=== PATIENT | male | born 1965 | race Caucasian/White ===

== ENCOUNTER 2017-12-05 13:00 | Outpatient (RCR) | payer BC ==
[2017-12-02 14:37] VITALS: BP 120/79
[2017-12-02 15:08] LABS: PLATELET COUNT, AUTOMATED 166 K/uL (150-450)
[~2017-12-05 13:00] MED LIST: ACET500T68 PO; ATOR10TA24 PO; CHOL10005 PO; EMPA1TAB3; FURO-45 PO; GLUC100026 PO; HYDR-317 PO; IBUP-1671 PO; IBUP600T22 PO; LOR5/325 PO; LOSA-54 PO; METF-411 PO; MONT10TA PO; OLME1TAB60 PO; ONDA4TAB PO; POTA99TA6 PO; PROM-110 PO; TADA5TAB7 PO
[2017-12-05 13:04] VITALS: BP 115/74
--- NOTE | 2017-12-05 13:36 | ONC Progress Note - NP.Halsey ---
Patient History Date of Service Dec 05, 2017 Reason For Visit/HPI Patient is seen in the clinic today for follow-up of his erythrocytosis. Patient denies any fatigue or changes since his last office visit. 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 He is having a colonoscopy with his primary care provider next week. With his last visit he did report occasional rectal bleeding from hemorrhoids. CBC is drawn today shows a stable hematocrit of 52.8, previously was 52.6, hemoglobin 18.3. Patient has no concerns today Problem List (1) Erythrocytosis Oncology History Mr. Neeraj Landa is a 52-year-old male who is followed by Dr. Webber. He had a blood count done recently on September 10, 2014 which showed hemoglobin of 20 and hematocrit of 58.7%. Red blood cell count was high at 6.08. Platelet count was 139. White blood cell count was normal at 9.7. The patient was a smoker for over thirty years, nearly one pack a day, and he quit recently on July 21, 2014. Jak2 mutation analysis for V617F mutation and exon 12 mutation came back negative. Erythropoietin level was normal at 7. Patient is followed every 3 months and has a phlebotomy removing 500 mls of red blood cells if his hematocrit is greater than 55%. Psychosocial History Social History The patient is , but he does not have children. 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 Denies any abuse of alcohol or illicit drugs. He quit smoking July 21, 2014 after one pack a day for thirty years. Smoking History: No Smoking Status: Former Smoker Medications and Allergies Reported Medications Empagliflozin/Linagliptin (Glyxambi 10 mg-5 mg Tablet) 1 Each Tablet 08/12/16 Cholecalciferol (Vitamin D3) (VITAMIN D3) 1,000 Unit Tablet, 1000 UNIT PO, TAB 12/28/15 Tadalafil (CIALIS) 5 Mg Tablet, 5 MG PO QDAY 08/18/15 Metformin Hcl (METFORMIN HCL) 500 Mg Tablet, 1 TAB PO BID, #60 06/27/15 Furosemide (FUROSEMIDE) 20 Mg Tablet, 1 TAB PO DAILY, #30 06/27/15 Ibuprofen (MOTRIN IB) 200 Mg Tablet, 1-2 TAB PO Q6-8H Y for PAIN 04/22/15 Losartan/Hydrochlorothiazide (LOSARTAN-HCTZ 100-25 MG TAB) 1 Each Tablet, 1 EACH PO QDAY for Blood Pressure 02/11/15 Glucosamine Sulfate 2KCL (GLUCOSAMINE) 1,000 Mg Tablet, 1000 MG PO TID 10/21/14 Potassium Gluconate (POTASSIUM) 99 Mg Tablet, 99 MG PO QDAY 10/21/14 Atorvastatin Calcium (LIPITOR) 10 Mg Tablet, 1 TAB PO QDAY, TAB TAKE ONE TABLET BY MOUTH ONCE A DAY AT BED TIME 10/21/14 Montelukast Sodium (SINGULAIR) 10 Mg Tablet, 1 TAB PO QDAY TAKE ONE TABLET BY MOUTH EVERY DAY 10/21/14 Allergies: Coded Allergies: mold (Verified Allergy, Mild, UNKNOWN, 08/12/16) Review of System/Physical Exam Review of Systems All Systems Reviewed/Normal: Yes, Except as Noted Respiratory: Positive for Shortness of Breath HEENT: Nasal Discharge Physical Exam Vital Signs Temperature: 97.6 Pulse: 84 BP Systolic: 115 BP Diastolic: 74 Respiratory Rate: 18 O2 SAT: 93 O2 Delivery: Room Air Height (inches) 70.00 Weight lb: 280 Weight oz: 2.0 Weight Kg (Thong): 132.05 Pain: 0 ECOG Score: 0 General: Stable, Well Developed, Well Nourished, Not In Acute Distress HEENT: No Trauma, No Conjunctivitis, No Icterus, No Mucositis, No Oral Thrush Neck: Supple Lungs: Clear to Auscultation Heart: Regular Rate, Regular Rhythm, No Gallops Abdomen: Soft and Nontender, No Hepatosplenomegaly, No Masses Extremities: No Cyanosis, No Clubbing, No Edema Lymphadenopathy: No Cervical Psychiatric: Mood appears normal, Affect appears normal Skin: No Skin Rashes, No Bruising, No Purpura Diagnostic Studies Diagnostic Studies Laboratory Laboratory Tests 12/02/17 14:43 Laboratory Tests 12/02/17 14:43: White Blood Count 7.5, Red Blood Count 5.70, Hemoglobin 18.3, Hematocrit 52.8, Mean Corpuscular Volume 92.6, Mean Corpuscular Hemoglobin 32.0, Mean Corpuscular Hemoglobin Concent 34.6, Red Cell Distribution Width 13.2, Platelet Count 166, Mean Platelet Volume 9.0, Neutrophils (%) (Auto) 64.3, Lymphocytes (% ) (Auto) 26.2, Monocytes (%) (Auto) 8.3, Eosinophils (%) (Auto) 0.6, Basophils ( %) (Auto) 0.6, Nucleated RBC Relative Count (auto) 0.1, Neutrophils # (Auto) 4.8 , Lymphocytes # (Auto) 2.0, Monocytes # (Auto) 0.6, Eosinophils # (Auto) 0.0, Basophils # (Auto) 0.0, Nucleated RBC Absolute Count (auto) 0.00 Assessment and Plan Assessment & Plan 1. Secondary erythrocytosis most probably due to obstructive sleep apnea. Patient is currently on CPAP. JAK2 mutation for V617F mutation and Exon 12 mutation came back negative. The erythropoietin level was normal at 7. Repeat erythropoietin was normal at 17. The patient quit smoking and started CPAP for his sleep apnea with improvement of his general condition and his oxygenation. His current hematocrit is 52.8 previously it was 52.6 There is no indication for phlebotomy at this time. Target for phlebotomy is the hematocrit above 55% and patient denies any change in fatigue. Patient will follow in three months with CBC at that time. 2. Gout. No recent symptoms 3. Hypercholesterolemia. On treatment 4. Hypertension, on treatment. 5. Screening indications, patient is currently 52 years of age and a colonoscopy and PSA is recommended. Patient scheduled for colonoscopy next week. PLAN 1. Continue followup. 2. Patient is to return in three months with CBC. 3. Consider phlebotomy if hematocrit is above 55%. 4. Patient is to contact us for any new concerns or complaints. I personally spent a total of 20 minutes. Of that 20 minutes was counseling/ coordination of patient's care. See my note above for details. Copies to: DOT WEBBER MD, NANCY J FNP-BC, ONC Dec 05, 2017 13:36
== END 2018-02-27 ==
LOC: ONC 13:00
PROVIDERS: ATTEND Internal Medicine Hematology
DX: D75.1 Secondary polycythemia (principal); M10.9 Gout, unspecified; E78.00 Pure hypercholesterolemia, unspecified; I10 Essential (primary) hypertension; Z87.891 Personal history of nicotine dependence; Z79.899 Other long term (current) drug therapy; R06.02 Shortness of breath
CPT/HCPCS: 36415; 85025; 99212

== ENCOUNTER → 2017-12-12 | Day surgery (SDC) | payer BC ==
[~2017-12-12] VITALS: Ht 177.8 cm; Wt 123.4 kg
[~2017-12-12] MED LIST changes: +LIDOCAINE/SOD BICARB 8.4% SYR ID ONE; +METF-410 PO; -METF-411 PO; +MIDAZOLAM 2 MG/2 ML VIAL IVP PRN; +NORMOSOL R SOLN(*) 1000 ML BAG 1,000 ML IV PRN; +PROPOFOL(*)1000 MG/100 ML VIAL 100 ML ONE
[2017-12-12 07:43] VITALS: BP 134/98
[2017-12-12 09:11] VITALS: BP 101/74
[2017-12-12 09:27] VITALS: BP 121/102
[2017-12-12 09:50] VITALS: BP 121/88
[2017-12-12 10:00] VITALS: BP 118/79
[2017-12-12 10:02] VITALS: BP 105/76
== END ==
LOC: OR 00:31
PROVIDERS: ATTEND Family Medicine
DX: Z12.11 Encounter for screening for malignant neoplasm of colon (principal); E11.9 Type 2 diabetes mellitus without complications
CPT/HCPCS: 00812; 36416; 45378; 82948; J2704

== ENCOUNTER → 2018-02-27 | Outpatient (CLI) | payer BC ==
[~2018-02-27] MED LIST changes: -LIDOCAINE/SOD BICARB 8.4% SYR ID ONE; -METF-410 PO; +METF-411 PO; -MIDAZOLAM 2 MG/2 ML VIAL IVP PRN; -NORMOSOL R SOLN(*) 1000 ML BAG 1,000 ML IV PRN; -PROPOFOL(*)1000 MG/100 ML VIAL 100 ML ONE
--- NOTE | 2018-02-27 15:15 | RADIOLOGY IMAGING REPORT ---
FACILITY: [facility] PATIENT NAME: Neeraj Landa : 1965 MR: [id number] V: [id number] EXAM DATE: ORDERING PHYSICIAN: DOT WEBBER TECHNOLOGIST: Location: [facility] [place] Patient: Neeraj Landa : 1965 Visit/Account:[id number] Date of Sevice: 02/27/2018 CAROTID HISTORY: Atheroembolism of other site COMPARISON: February 27, 2017 FINDINGS: Grayscale, duplex and color Doppler interrogation of the extracranial carotid and vertebral arteries was performed bilateral. On the right, peak systolic velocities within the common and internal carotid arteries are and 16 and 89 cm/sec respectively. Scattered small plaques seen in the right common carotid artery at the righ t carotid bulb. Antegrade flow within the common, internal and external carotid arteries as well as vertebral artery. ICA/CCA ratio 1.0. On the left, peak systolic velocities within the common and internal carotid arteries are 125 and 110 cm/sec respectively. Scattered small hard plaques identified in the left common carotid artery and the left carotid bulb. Antegrade flow within the common, internal and external carotid arteries as w ell as vertebral artery. ICA/CCA ratio 0.9. IMPRESSION: Scattered small hard plaques identified in the common carotid arteries and carotid bulbs although no hemodynamically significant lesions identified by velocity criteria Velocity criteria are extrapolated from diameter data as defined by the Society of Radiologists in [facility] Consensus Conference Radiology 2003; 229;340-346 Report Dictated By: Natalie Gonzales MD at 02/27/2018 3:10 PM Report E-Signed By: Natalie Gonzales MD at 02/27/2018 3:12 PM WSN:[id number]
== END ==
LOC: US 04:58
PROVIDERS: ATTEND Family Medicine
DX: I66.3 Occlusion and stenosis of cerebellar arteries (principal)
CPT/HCPCS: 93880

== ENCOUNTER → 2018-03-03 | Outpatient (CLI) | payer BC ==
--- NOTE | 2018-03-03 15:02 | RADIOLOGY IMAGING REPORT ---
FACILITY: [facility] PATIENT NAME: Neeraj Landa : 1965 MR: [id number] V: [id number] EXAM DATE: ORDERING PHYSICIAN: DOT WEBBER TECHNOLOGIST: Location: [facility] Patient: Neeraj Landa : 1965 Visit/Account:[id number] Date of Sevice: 03/03/2018 Technique: WRIST RIGHT 2 VIEW HISTORY: Chronic wrist pain Comparison studies: None FINDINGS: There is no acute fracture. The alignment of the right wrist is maintained. Soft tissues are unremarkable. IMPRESSION: 1. No acute osseous process. Report Dictated By: Hardy Lizarraga DO at 03/03/2018 2:57 PM Report E-Signed By: Hardy Lizarraga DO at 03/03/2018 2:58 PM WSN:[id number]
== END ==
LOC: RAD 14:06
PROVIDERS: ATTEND Family Medicine
DX: M77.21 Periarthritis, right wrist (principal)

== ENCOUNTER 2018-03-06 13:24 | Outpatient (RCR) | payer BC ==
[2018-03-03 14:04] LABS: PLATELET COUNT, AUTOMATED 170 K/uL (150-450)
[2018-03-06 13:33] VITALS: BP 151/97
--- NOTE | 2018-03-18 16:58 | Oncology Progress Note ---
History of Present Illness Evaluation Evaluation Date: Mar 06, 2018 Evaluation Time: 13:30 Primary Care Provider Primary Care Provider: All Mccallum Accompanied by Accompanied by: Self Last seen by : ALNIA 11/2017 Chief Complaint Chief Complaint: f/u management of SECONDARY ERYTHOCYTOSIS Oncology History Oncology History: October 21, 2014 Evaluation and management of polycythemia or erythrocytosis. April 2017 Dx with secondary Erythorcytosis HCt initial 04/2016 52.1 HCt 11/2017 52.8; Hct 03/03/2018 49.0 HPI HPI: Mr. Lito Pickard is a 52 year old man who has SECONDARY ERYTHOCYTOSIS most likely due to obstructive sleep Apnea. Patient is seen at [facility] today for his management of secondary erythrocytosis, He reports being in his usual state of health as he is making good effort by walking 15 blocks daily to lose weight, patient is morbidly obese. His initial presentation Hct in 04/2016 was 52.1. Today's labs show HCt of 49.0 There is no indication for phlebotomy at this time. of note, on 04/2017 aprox JAK2 mutation for V617F mutation and Exon 12 mutation came back negative. The erythropoietin level was normal at 7. Repeat erythropoietin was normal at 17. The patient quit smoking and started CPAP for his sleep apnea with improvement of his general condition and his oxygenation. His current hematocrit is 50.2%. Target for therapeutic phlebotomy is the hematocrit above 55%. planning to see him every three months with CBC at that time. Social/Occupational History Social History: Social History This is a 52 Yr old White male, he is M and has [] Children Hx Smoking: No Smoking Status: Former Smoker Allergies & Medications Allergies: Coded Allergies: mold (Verified Allergy, Mild, UNKNOWN, 08/12/16) Home Meds Reported Medications Empagliflozin/Linagliptin (Glyxambi 10 mg-5 mg Tablet) 1 Each Tablet 08/12/16 Cholecalciferol (Vitamin D3) (VITAMIN D3) 1,000 Unit Tablet, 1000 UNIT PO, TAB 12/28/15 Tadalafil (CIALIS) 5 Mg Tablet, 5 MG PO QDAY 08/18/15 Metformin Hcl (METFORMIN HCL) 500 Mg Tablet, 1 TAB PO BID, #60 06/27/15 Furosemide (FUROSEMIDE) 20 Mg Tablet, 1 TAB PO DAILY, #30 06/27/15 Ibuprofen (MOTRIN IB) 200 Mg Tablet, 1-2 TAB PO Q6-8H Y for PAIN 04/22/15 Losartan/Hydrochlorothiazide (LOSARTAN-HCTZ 100-25 MG TAB) 1 Each Tablet, 1 EACH PO QDAY for Blood Pressure 02/11/15 Glucosamine Sulfate 2KCL (GLUCOSAMINE) 1,000 Mg Tablet, 1000 MG PO TID 10/21/14 Potassium Gluconate (POTASSIUM) 99 Mg Tablet, 99 MG PO QDAY 10/21/14 Atorvastatin Calcium (LIPITOR) 10 Mg Tablet, 1 TAB PO QDAY, TAB TAKE ONE TABLET BY MOUTH ONCE A DAY AT BED TIME 10/21/14 Montelukast Sodium (SINGULAIR) 10 Mg Tablet, 1 TAB PO QDAY TAKE ONE TABLET BY MOUTH EVERY DAY 10/21/14 Review of Systems Constitution: Denies Appetite/Weight Change, Denies Fever/Chills/Sweating, Denies Recent Infection, Denies Other HEENT: No EARS: Tinnitus, No NOSE: Nasal Discharge, No THROAT: Sore Throat, No EYES: Dipolpia, No EARS: Hearing Problems, No NOSE: Epistaxis, No THROAT: Mouth Ulcers, No EYES: Vision Change, No OTHER Respiratory: No Cough, No Expectoration, No Hemoptysis, No Shortness of Breath , No OTHER Cardiovascular: No Chest Pain, No Orthopnea, No Edema, No Palpitations, No OTHER Gastrointestinal: No Nausea, No Vomitting, No Diarrehea, No Constipation, No Heart Burn, No Swallowing Difficulties, No Abdominal Pain, No Other Gentiourinary: No Hematuria, No Dysuria, No Nocturia, No Other Musculoskeletal: No Muscle Pain, No Joint Pain, No Bone Pain, No Other Hematological: No Bleeding, No Weakness, No Enlarged Lyph Nodes, No Bruising, No Fatigue, No Other Skin: No Skin Rash, No Lumps, No Erythema, No Dry Skin, No Moist Skin, No Other Psychiatric: No Anxiety, No Depression, No Other Vital Signs Vital Signs Temperature: 97.1 Pulse: 91 BP Systolic: 151 BP Diastolic: 97 Respiratory Rate: 16 O2 SAT: 90 O2 Delivery: Room Air Height (feet) 5 Height (inches) 70.00 Weight lb: 272 Weight oz: 2.0 Weight Kg (Thong): 132.05 Pain: 0 Physical Exam General: Looks Stable HEENT: HEAD:Atraumatic Neck: Supple Lungs: Clear to Auscultation, Percussion Bilaterally Heart: Regular Rate and Rhythm Abdomen: Soft and Nontender, Other (grossly rounded.) Extremities: No Cyanosis, No Clubbing, No Edema, No Other Lymphatics: No Peripheral Lymphadenopathy, No Other Psychiatric: Mood appears normal, Affect appears normal Skin: No Skin Rashes, No Bruising, No Purpura, No Moist Desquamation, No Dry Desquamation, No Errythema, No Mild Errythema, No Moderate Errythema, No Severe Errythema, No Induration, No Other Breast: No No Masses, No No Nipple Discharge, No No Skin Changes, No Other Assessment Assessment: Mr. Lito Pickard is a 52 year old man who has SECONDARY ERYTHOCYTOSIS most likely due to obstructive sleep Apnea. Patient is seen at Cancer today for his management of secondary erythrocytosis, HCt is 49.0. No therapeutic Phlebotomy indicated at present time. 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 Viral hepatitis screening negative Plan Plan: Continue followup. 2. Patient is to return in three months with CBC,CMP, PSA 3. Consider phlebotomy if hematocrit is above 55%. 4. Patient is to contact us for any new concerns or complaints. 5. Continue to improve on weight lose and goal BMI, increase physicial activity , eat a clean low carb high fruits and vegetables diet. TIME SPENT: 20 minutes >15 minutes incudes but not limited to discussion, counselling and co-ordination~ of care. Discussion with other health care providers, record review, review of lab work, diagnostic tests. Plan discussed extensively with patient. All the questions answered today. Thank you for the opportunity to be involved in the care of Billing Level: Return visit 3 CC Copies to: LELA ROY MD, SARA FNP-C, ONC Mar 18, 2018 16:58
== END 2018-04-24 13:54 | disposition home or self-care (01) ==
LOC: ONC 13:24
PROVIDERS: ATTEND Internal Medicine Hematology
DX: D75.1 Secondary polycythemia (principal)
CPT/HCPCS: 36415; 85025

== ENCOUNTER → 2018-09-11 | Outpatient (RCR) | payer BC ==
[2018-06-16 10:42] VITALS: BP 128/95
[2018-06-16 10:59] LABS: PLATELET COUNT, AUTOMATED 173 K/uL (150-450)
[2018-06-19 13:14] VITALS: BP 139/91
--- NOTE | 2018-06-19 16:13 | Oncology Progress Note ---
History of Present Illness Evaluation Evaluation Date: Jun 19, 2018 Evaluation Time: 13:20 Primary Care Provider Primary Care Provider: All Mccallum Accompanied by Accompanied by: Self Last seen by : ALINA 11/2017 Chief Complaint Chief Complaint f/u management of SECONDARY ERYTHOCYTOSIS Oncology History Oncology History Hematology History October 21, 2014 Evaluation and management of polycythemia or erythrocytosis. April 2017 Dx with secondary Erythorcytosis HCt initial 04/2016 52.1 HCt 11/2017 52.8; 03/03/2018 Hct 49.0 06/19/2018 HCt 50.1 Treatment Treatment - Therapeutic Phlebotomies if HCt >555. - Last documented phlebotomy in 03/2015; 500 cc were removed. HPI HPI Mr. Lito Pickard is a 52 year old man who has Secondary Erythrocytosis most likely due to obstructive sleep Apnea. Patient is seen at Cancer today for his management of secondary erythrocytosis, He reports being in his usual state of health.Patient is AAOX4, hemodynamically stable and afebrile, denies any cardiac type chest pain, no abdominal pain, no fevers at home, no night sweats, no chills, no spontaneous bleeding, no skin irritation,no changes in bowel or bladder pattern. He continues to be morbidly obese, and appears to have gained weight. patient informs me that he continues making good effort by walking 15 blocks daily-90minutes daily to lose weight. He had a colonoscopy in 11/2017 with Leo alves and is was benign ( next colonoscopy due in 2027 in 10 years. LAst recorded need for therapeutic Phlebotomy was in 03/2015. His initial presentation Hct in 04/2016 was 52.1. Today's labs show HCT of 50.1. There is no indication for phlebotomy at this time. off note, on 04/2017 aprox JAK2 mutation for V617F mutation and Exon 12 mutation came back negative. The e rythropoietin level was normal at 7. Repeat erythropoietin was normal at 17. The patient quit smoking and started CPAP for his sleep apnea with improvement of his general condition and his oxygenation. His current hematocrit is 50.1%. Target for therapeutic phlebotomy is if the hematocrit above 55%. Panning to continue to follow up every three months with CBC at that time. Diagnostic Studies Result Diagram: 06/16/18 1054 Social/Occupational History Social History: Social History This is a 52 Yr old White male, he is M and has [] Children Hx Smoking: No Smoking Status: Former Smoker Allergies & Medications Allergies: Coded Allergies: mold (Verified Allergy, Mild, UNKNOWN, 08/12/16) Home Meds Reported Medications Clopidogrel Bisulfate (PLAVIX) 75 Mg Tablet, 1 TAB PO QDAY, TAB 06/19/18 Empagliflozin/Linagliptin (Glyxambi 10 mg-5 mg Tablet) 1 Each Tablet 08/12/16 Cholecalciferol (Vitamin D3) (VITAMIN D3) 1,000 Unit Tablet, 1000 UNIT PO, TAB 12/28/15 Tadalafil (CIALIS) 5 Mg Tablet, 5 MG PO QDAY 08/18/15 Metformin Hcl (METFORMIN HCL) 500 Mg Tablet, 1 TAB PO BID, #60 06/27/15 Furosemide (FUROSEMIDE) 20 Mg Tablet, 1 TAB PO DAILY, #30 06/27/15 Ibuprofen (MOTRIN IB) 200 Mg Tablet, 1-2 TAB PO Q6-8H PRN for PAIN 04/22/15 Losartan/Hydrochlorothiazide (LOSARTAN-HCTZ 100-25 MG TAB) 1 Each Tablet, 1 EACH PO QDAY for Blood Pressure 02/11/15 Glucosamine Sulfate 2KCL (GLUCOSAMINE) 1,000 Mg Tablet, 1000 MG PO TID 10/21/14 Potassium Gluconate (POTASSIUM) 99 Mg Tablet, 99 MG PO QDAY 10/21/14 Atorvastatin Calcium (LIPITOR) 10 Mg Tablet, 1 TAB PO QDAY, TAB TAKE ONE TABLET BY MOUTH ONCE A DAY AT BED TIME 10/21/14 Montelukast Sodium (SINGULAIR) 10 Mg Tablet, 1 TAB PO QDAY TAKE ONE TABLET BY MOUTH EVERY DAY 10/21/14 Review of Systems Constitution: Denies Appetite/Weight Change, Denies Fever/Chills/Sweating, Denies Recent Infection, Denies Other HEENT: No EARS: Tinnitus, No NOSE: Nasal Discharge, No THROAT: Sore Throat, No EYES: Dipolpia, No EARS: Hearing Problems, No NOSE: Epistaxis, No THROAT: Mouth Ulcers, No EYES: Vision Change, No OTHER Respiratory: No Cough, No Expectoration, No Hemoptysis, No Shortness of Breath, No OTHER Cardiovascular: No Chest Pain, No Orthopnea, No Edema, No Palpitations, No OTHER Gastrointestinal: No Nausea, No Vomitting, No Diarrehea, No Constipation, No Heart Burn, No Swallowing Difficulties, No Abdominal Pain, No Other Gentiourinary: No Hematuria, No Dysuria, No Nocturia, No Other Musculoskeletal: No Muscle Pain, No Joint Pain, No Bone Pain, No Other Hematological: No Bleeding, No Weakness, No Enlarged Lyph Nodes, No Bruising, No Fatigue, No Other Skin: No Skin Rash, No Lumps, No Erythema, No Dry Skin, No Moist Skin, No Other Psychiatric: No Anxiety, No Depression, No Other Vital Signs Vital Signs Temperature: 98.6 Pulse: 92 BP Systolic: 139 BP Diastolic: 91 Respiratory Rate: 18 O2 SAT: 90 O2 Delivery: Room Air Height (feet) 5 Height (inches) 70.00 Weight lb: 272 Weight oz: 2.0 Weight Kg (Thong): 132.05 Pain: 0 ECOG-0 Physical Exam General: Looks Stable, Other (morbidly obese) HEENT: HEAD:Atraumatic Neck: Supple Lungs: Clear to Auscultation, Percussion Bilaterally Heart: Regular Rate and Rhythm Abdomen: Soft and Nontender, Other (grossly rounded) Extremities: No Cyanosis, No Clubbing, No Edema, No Other Psychiatric: Mood appears normal, Affect appears normal Skin: No Skin Rashes, No Bruising, No Purpura, No Moist Desquamation, No Dry Desquamation, No Errythema, No Mild Errythema, No Moderate Errythema, No Severe Errythema, No Induration, No Other Assessment and Plan Assessment and Plan Mr. Lito Pickard is a 52 year old man who has Secondary Erythrocytosis most likely due to obstructive sleep Apnea. Patient is seen at [facility] today for his management of secondary erythrocytosis, He reports being in his usual state of health.Patient is AAOX4, hemodynamically stable and afebrile, denies any cardiac type chest pain, no abdominal pain, no fevers at home, no night sweats, no chills, no spontaneous bleeding, no skin irritation,no changes in bowel or bladder pattern. He continues to be morbidly obese, and appears to have gained weight. patient informs me that he continues making good effort by walking 15 blocks daily-90minutes daily to lose weight. He had a colonoscopy in 11/2017 with Leo alves and is was benign ( . Last recorded need for therapeutic Phlebotomy was in 03/2015. His initial presentation Hct in 04/2016 was 52.1. Today's labs show HCT of 50.1. There is no indication for phlebotomy at this time. DIAGNOSTIC DATA CBC WITHIN ACCEPTABLEPARAMETER. 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 Viral hepatitis screening negative Plan Plan: 1. Continue followup. 2. Patient is to return in three months with CBC,CMP 3. Consider phlebotomy if hematocrit is above 55%. 4. Patient is to contact us for any new concerns or complaints. 5. Continue to improve on weight lose and goal BMI, increase physical activity , eat a clean low carb, high fruits and vegetables diet. 6. Weight loss management consultation. 7.Next colonoscopy due in 2027 in 10 years. s/p Colonoscopy 11/2017 benign. -Education, patient instructed to go to ER immediately and, or call Clinic if any Shortness of Breath, Temp >/=100.4, fevers, chills, cardiac type chest pain, bleeding, excessive bruising, headaches, blurry vision, dizziness, abdominal pain, difficulty swallowing, and pain unrelieved by medication, skin rashes, oozing wounds. TIME SPENT: 20 minutes 15 > minutes includes but not limited to discussion, counselling and co-ordination~ of care. Discussion with other health care provi ders, record review, review of lab work, diagnostic tests. Plan discussed extensively with patient. All the questions answered today. Thank you for the opportunity to be involved in the care of Neeraj Bergeron. Billing Level: Return visit 3 CC Copies to: LELA ROY MD ; FLAVIO WALKER FRAME NAILER-C, ONC Jun 19, 2018 16:13
[2018-09-10 13:33] VITALS: BP 140/96
[2018-09-10 13:46] LABS: PLATELET COUNT, AUTOMATED 194 K/uL (150-450)
[~2018-09-11] MED LIST changes: +CLOP75TA43 PO; -METF-411 PO; +METF-450 PO
[2018-09-11 13:10] VITALS: BP 143/90
--- NOTE | 2018-09-11 22:02 | [facility] ONCOLOGY NOTE ---
EVENT DATE: September 11, 2018 DIAGNOSES 1. Erythrocytosis. 2. Gout. 3. Hypercholesterolemia. 4. Hypertension. CHIEF COMPLAINT The patient is here today for followup of his erythrocytosis. HEMATOLOGY HISTORY Mr. Neeraj Landa is a 53-year-old male who is followed by Dr. Higgins. He had a blood count done recently on September 10, 2014, which showed hemoglobin of 20 and hematocrit of 58.7%. Red blood cell count was high at 6.08. Platelet count was 139. White blood cell count was normal at 9.7. The patient was a smoker for over 30 years, nearly one pack a day, and he quit recently on July 21, 2014. JAK2 mutation analysis for V617F mutation and exon 12 mutation came back negative. Erythropoietin level was normal at 7. HISTORY OF PRESENT ILLNESS Patient is here today for followup of his secondary erythrocytosis. He is doing fine currently. He has some cough, but other than that, he is really doing well. PAST MEDICAL HISTORY 1. Gout. 2. Hypercholesterolemia. 3. Hypertension. PAST SURGICAL HISTORY Hernia repair at the age of [age] years. SOCIAL HISTORY The patient is , but he does not have children. 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 Denies any abuse of alcohol or illicit drugs. He quit smoking July 21, 2014, after one pack a day for 30 years. FAMILY HISTORY His father had bladder cancer at age 55. CURRENT MEDICATIONS 1. Benicar 40/12.5 mg daily. 2. Singulair 10 mg daily. 3. Lipitor 10 mg daily. 4. Potassium supplement. 5. Glucosamine. ALLERGIES No allergy to prescription drugs, but he has allergies to two [id number] drugs, of which he does not remember the names. REVIEW OF SYSTEMS CONSTITUTIONAL: No appetite or weight change. No fever, chills, or sweating. No recent infection. HEENT: Ears: No tinnitus or hearing problem. Nose: No nasal discharge or epistaxis. Throat: No sore throat or mouth ulcers. Eyes: No diplopia or visual changes. RESPIRATORY: No shortness of breath. Patient has some cough. CARDIOVASCULAR: No chest pain, orthopnea, or paroxysmal nocturnal dyspnea (PND). No edema. No palpitations. GASTROINTESTINAL: No nausea or vomiting. No diarrhea or constipation. No change in bowel movements. No heartburn or swallowing difficulties. No abdominal pain. No jaundice. No hematemesis, melena, or rectal bleeding. GENITOURINARY: No hematuria or dysuria. MUSCULOSKELETAL: No pain in the muscles, joints, or bones. NEUROLOGICAL: No tingling or numbness in the hands or feet. No headaches or convulsions. HEMATOLOGIC/LYMPHATIC: No bleeding or easy bruising. No weakness or fatigue. No enlarged lymph nodes. SKIN: No skin rash or lumps. PSYCHIATRIC: No anxiety or depression. PHYSICAL EXAMINATION GENERAL: Looks stable. Well developed, well nourished, and in no acute distress. VITAL SIGNS: Blood pressure 143/90, pulse 93 per minute, respirations 18 per minute, temperature 97.6, pulse ox 90% on room air. HEENT: Head: Atraumatic. No sinus tenderness to palpation. Eyes: No icterus or conjunctivitis. Mouth and Throat: No oral thrush or mucositis. NECK: Supple. No cervical or supraclavicular lymphadenopathy. LUNGS: Clear to auscultation and percussion bilaterally. HEART: Regular rate and rhythm. No gallops, murmurs, clicks, or rubs. ABDOMEN: Soft and lax. No tenderness. No hepatosplenomegaly. No masses. EXTREMITIES: No cyanosis, clubbing, or edema. LYMPHATICS: No peripheral lymphadenopathy. NEUROLOGICAL: Conscious, alert, and oriented times three. No focal motor or sensory deficits. PSYCHIATRIC: Mood and affect appear normal. SKIN: No skin rash, bruise, or purpuric eruption. DIAGNOSTIC DATA CBC showed white count 7.2, hemoglobin 17.9, hematocrit 52.6, platelets 194,000. ASSESSMENT 1. 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 JAK2 mutation for V617F mutation and exon 12 mutation came back negative. The erythropoietin level was normal at 7. Repeat erythropoietin was normal at 17. The patient quit smoking and started CPAP for his sleep apnea with improvement of his general condition, oxygenation, and also the frequency of phlebotomies. His current hematocrit is 52.6%. There is no indication for phlebotomy at this visit. I am planning to see him in three months with CBC. If his hematocrit is above 55%, I will proceed with phlebotomy at that time. 2. Gout. 3. Hypercholesterolemia. 4. Hypertension, on treatment. PLAN 1. Continue followup. 2. Patient is to return in three months with CBC. 3. Consider phlebotomy if hematocrit above 55%. 4. Patient is to contact us for any new concerns or complaints. MTDD
== END ==
LOC: ONC 06-13 09:24 → SPU 06-16 08:30 → ONC 06-19 13:00 → SPU 09-10 13:30 → ONC 13:00
PROVIDERS: ATTEND Internal Medicine Hematology
DX: D75.1 Secondary polycythemia (principal); E66.01 Morbid (severe) obesity due to excess calories; G47.30 Sleep apnea, unspecified; M10.9 Gout, unspecified; E78.00 Pure hypercholesterolemia, unspecified; I10 Essential (primary) hypertension; E11.9 Type 2 diabetes mellitus without complications; I75.89 Atheroembolism of other site
CPT/HCPCS: 36415; 85025; 99212

== ENCOUNTER 2018-12-18 13:30 | Outpatient (RCR) | payer BC ==
[2018-12-15 13:35] VITALS: BP 157/106
[2018-12-15 13:52] LABS: PLATELET COUNT, AUTOMATED 180 K/uL (150-450)
[2018-12-18 13:34] VITALS: BP 136/85
[2018-12-18] MEDS ORDERED: EMPA1TAB (13:37)
--- NOTE | 2018-12-18 14:49 | [facility] ONCOLOGY NOTE ---
EVENT DATE: December 18, 2018 DIAGNOSES 1. Erythrocytosis. 2. Gout. 3. Hypercholesterolemia. 4. Hypertension. CHIEF COMPLAINT Patient is here today for followup of his erythrocytosis. HEMATOLOGY HISTORY Mr. Neeraj Landa is a 53-year-old male who is followed by Dr. Higgins. He had a blood count done recently on September 10, 2014, which showed hemoglobin of 20 and hematocrit of 58.7%. Red blood cell count was high at 6.08. Platelet count was 139. White blood cell count was normal at 9.7. The patient was a smoker for over 30 years, nearly one pack a day, and he quit recently on July 21, 2014. JAK2 mutation analysis for V617F mutation and exon 12 mutation came back negative. Erythropoietin level was normal at 7. HISTORY OF PRESENT ILLNESS Patient is here today for followup of his secondary erythrocytosis. He is doing fine currently. He is totally asymptomatic. He has sleep apnea and using oxygen at night beside the CPAP. PAST MEDICAL HISTORY 1. Gout. 2. Hypercholesterolemia. 3. Hypertension. PAST SURGICAL HISTORY Hernia repair at the age of [age] years. SOCIAL HISTORY The patient is , but he does not have children. 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 Denies any abuse of alcohol or illicit drugs. He quit smoking July 21, 2014, after one pack a day for 30 years. FAMILY HISTORY His father had bladder cancer at age 55. CURRENT MEDICATIONS 1. Benicar 40/12.5 mg daily. 2. Singulair 10 mg daily. 3. Lipitor 10 mg daily. 4. Potassium supplement. 5. Glucosamine. ALLERGIES No allergy to prescription drugs, but he has allergies to two mwaw-uic-affarrm drugs, of which he does not remember the names. REVIEW OF SYSTEMS CONSTITUTIONAL: No appetite or weight change. No fever, chills, or sweating. No recent infection. HEENT: Ears: No tinnitus or hearing problem. Nose: No nasal discharge or epistaxis. Throat: No sore throat or mouth ulcers. Eyes: No diplopia or visual changes. RESPIRATORY: No shortness of breath. No cough, expectoration, or hemoptysis. CARDIOVASCULAR: No chest pain, orthopnea, or paroxysmal nocturnal dyspnea (PND). No edema. No palpitations. GASTROINTESTINAL: No nausea or vomiting. No diarrhea or constipation. No change in bowel movements. No heartburn or swallowing difficulties. No abdominal pain. No jaundice. No hematemesis, melena, or rectal bleeding. GENITOURINARY: No hematuria or dysuria. MUSCULOSKELETAL: No pain in the muscles, joints, or bones. NEUROLOGICAL: No tingling or numbness in the hands or feet. No headaches or convulsions. HEMATOLOGIC/LYMPHATIC: No bleeding or easy bruising. No weakness or fatigue. No enlarged lymph nodes. SKIN: No skin rash or lumps. PSYCHIATRIC: No anxiety or depression. PHYSICAL EXAMINATION GENERAL: Looks stable. Well developed, well nourished, and in no acute distress. VITAL SIGNS: Blood pressure 136/85, pulse 101 per minute, respirations 16 per minute, temperature 97.5, pulse ox 90% on room air. HEENT: Head: Atraumatic. No sinus tenderness to palpation. Eyes: No icterus or conjunctivitis. Mouth and throat: No oral thrush or mucositis. NECK: Supple. No cervical or supraclavicular lymphadenopathy. LUNGS: Clear to auscultation and percussion bilaterally. HEART: Regular rate and rhythm. No gallops, murmurs, clicks, or rubs. ABDOMEN: Soft and lax. No tenderness. No hepatosplenomegaly. No masses. EXTREMITIES: No cyanosis, clubbing, or edema. LYMPHATICS: No peripheral lymphadenopathy. NEUROLOGICAL: Conscious, alert, and oriented times three. No focal motor or sensory deficits. PSYCHIATRIC: Mood and affect appear normal. SKIN: No skin rash, bruise, or purpuric eruption. DIAGNOSTIC DATA CBC showed white count 5.7, hemoglobin 17, hematocrit 50.7, platelets 180,000. Blood sugar was 145, AST 110, ALT 99. Other parameters are normal. ASSESSMENT 1. 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 JAK2 mutation for V617F mutation and exon 12 mutation came back negative. The erythropoietin level was normal at 7. Repeat erythropoietin came back normal at 17. Patient quit smoking, and he started CPAP and home oxygen at night with improvement of his general condition, oxygenation, and also the frequency of phlebotomies. His current hematocrit is 50.7%. There is no indication for phlebotomy this visit. I will consider phlebotomy if hematocrit is at or above 55%. I am planning to see him again in four months with CBC at that time. 2. Gout. 3. Hypercholesterolemia. 4. Hypertension, on treatment. PLAN 1. Continue followup. 2. Patient to return in four months with CBC. 3. Consider phlebotomy if the hematocrit is at or above 55%. 4. Patient is to contact us for any new concerns or complaints. JAY JAY
== END 2019-01-21 12:15 | disposition home or self-care (01) ==
LOC: ONC 13:30
PROVIDERS: ATTEND Internal Medicine Hematology
DX: D75.1 Secondary polycythemia (principal); M10.9 Gout, unspecified; E78.00 Pure hypercholesterolemia, unspecified; I10 Essential (primary) hypertension
CPT/HCPCS: 36415; 85025; 99212

== ENCOUNTER → 2019-03-26 | Outpatient (CLI) | payer BC ==
[~2019-03-26] MED LIST changes: +EMPA1TAB
--- NOTE | 2019-03-26 16:21 | RADIOLOGY IMAGING REPORT ---
FACILITY: [facility] - [place] PATIENT NAME: Neeraj Landa : 1965 MR: [id number] V: [id number] EXAM DATE: ORDERING PHYSICIAN: ROYA BARNTET TECHNOLOGIST: Location: [facility] - [place] Patient: Neeraj Landa : 1965 Visit/Account:[id number] Date of Sevice: 03/26/2019 MRI right shoulder Indication: Right shoulder pain Comparison: None available. Technique: Multiplanar multisequence MR images were obtained through the right shoulder. Findings: Rotator cuff: Full-thickness tear of the supraspinatus and evidence of 1.4 cm medial retraction. There is moderate intrasubstance tearing of the distal infraspinatus with focal moderate to high-grade undersurface tea ring of distal posterior infraspinatus. Teres minor is intact. There is mild tendinopathy of the supe rior fibers of subscapularis. . Biceps tendon: The intra-articular portion of the tendon is intact and unremarkable. Extra-articular portion of the long head of biceps tendon appears unremarkable within the bicipital g roove. AC joint and acromion: Moderate acromioclavicular degenerative changes and undersurface spurring causes mild mass effect upo n the rotator cuff. There is mild lateral downsloping acromion seen which can predispose to impingeme nt as well. Labrum and capsular ligaments: Nondisplaced degenerative tearing superior labrum seen which extends from the biceps labral anchor to the posterior superior labrum. Capsular ligaments are intact with no evidence of focal abnormality. Bones and cartilage: No acute or aggressive osseous abnormality. No focal chondral defect glenohumeral joint cartilage.. Effusion, bursitis: Small likely reactive effusion glenohumeral joint. Mild amount of fluid seen within the subacromial/subcutaneous bursa. No significant fluid seen within the subacromial/subdeltoid bursa. IMPRESSION: 1. Full-thickness tear supraspinatus and moderate to high-grade undersurface tear distal posterior in fraspinatus. 2. Nondisplaced tearing superior labrum. 3. Mild subacromial/subcutaneous bursitis. Report Dictated By: Irineo Lake MD at 03/26/2019 4:11 PM Report E-Signed By: Irineo Lake MD at 03/26/2019 4:15 PM [id number]
== END ==
LOC: MRI 00:26
PROVIDERS: ATTEND Family Medicine
DX: S46.011A Strain of muscle(s) and tendon(s) of the rotator cuff of right shoulder, initial encounter (principal); S43.431A Superior glenoid labrum lesion of right shoulder, initial encounter; M75.51 Bursitis of right shoulder